=== PATIENT | male | born 1940 | race Caucasian/White ===

== ENCOUNTER 2017-10-12 10:06 | Outpatient (CLI) | payer MEDICARE | END 2017-10-12 10:07 | disposition home or self-care (01) | LOC: CTENTCT 10:06 | PROVIDERS: ATTEND Specialist | DX: J32.9 Chronic sinusitis, unspecified (principal) | CPT/HCPCS: 70486 ==

== ENCOUNTER 2017-10-19 08:00 | Outpatient (CLI) | payer MEDICARE ==
[2017-10-19] MEDS ORDERED: Iopamidol 370 76% 100 ML VIAL ONE (12:16)
== END 2017-10-19 08:01 | disposition home or self-care (01) ==
LOC: BICCT 08:00
PROVIDERS: ATTEND Internal Medicine Gastroenterology
DX: R10.9 Unspecified abdominal pain (principal); R94.5 Abnormal results of liver function studies; K80.20 Calculus of gallbladder without cholecystitis without obstruction; J90 Pleural effusion, not elsewhere classified; I70.90 Unspecified atherosclerosis; R18.8 Other ascites
CPT/HCPCS: 74177

== ENCOUNTER 2018-05-15 04:06 | Inpatient (IN) | payer MEDICARE ==
[2018-05-15] MEDS ORDERED: Pantoprazole 80 MG in Sodium Chloride 0.9% 100 ML IVP SCH (04:45)
[2018-05-15] MEDS ORDERED: Pantoprazole 40 MG VIAL ONE (05:05)
[2018-05-15] MEDS ORDERED: Ondansetron HCl/PF 4 MG/2 ML Vial ONE ×2 (05:05→06:27)
[2018-05-15 05:16] LABS: PTT 27.5 SEC (22.9-36.1); Prothrombin Time 22.3 SEC (12.0-14.7)
[2018-05-15 05:26] LABS: ALT (SGPT) 29 U/L (8-55); AST (SGOT) 47 U/L (5-34); Albumin 3.1 g/dL (3.4-4.8); Alkaline Phosphatase 217 U/L (40-150); Anion Gap 27 mmol/L (10-20); BUN (Urea Nitrogen) 94 mg/dL (8.4-25.7); Bilirubin, Total 4.1 mg/dL (0.2-1.2); CK (CPK) 26 U/L (30-200); Calc. Creatinine Clearance 0 mL/min (70-130); Calcium 8.4 mg/dL (7.8-10.44); Carbon Dioxide 17 mmol/L (23-31); Chloride 98 mmol/L (98-107); Estimated GFR-MDRD 26; Globulin 1.8 g/dL (2.4-3.5); Glucose 81 mg/dL (83-110); Protein, Total 4.9 g/dL (5.8-8.1); Sodium 135 mmol/L (136-145)
[2018-05-15 05:27] LABS: CKMB 3.1 ng/mL (0-6.6); Troponin I 0.024 ng/mL (< 0.028)
[2018-05-15 05:29] LABS: Potassium 6.7 mmol/L (3.5-5.1)
[2018-05-15 05:49] LABS: Bilirubin Negative (Negative); Blood, Urine Negative (Negative); Clarity CLOUDY (Clear); Glucose, Urine (Dipstick) Negative (Negative); Leukocyte Negative (Negative); Nitrite Negative (Negative); Protein, Urine (Dipstick) Negative (Neg-Trace); Specific Gravity, Urine 1.015 (1.002-1.036); Urobilinogen 0.2 mg/dL (0.2-1.0)
[2018-05-15 05:54] LABS: Band 10 % (5-11); Lymphocytes 5 % (21-51); MDiff Complete? YES; Mean Corpuscular HGB CONC 33.9 g/dL (32.0-36.0); Mean Corpuscular Hemoglobin 35.3 pg (27.0-31.0); Mean Platelet Volume 8.6 fL (7.4-10.4); Monocytes 1 % (0-10); Neutrophil 83 % (42-75); PLT Morphology Comment Appears Decreased; Platelet Count 81 thou/uL (130-400); RBC Distribution Width 14.5 % (11.5-14.5); Red Blood Cell (RBC) Count 1.69 mill/uL (4.70-6.10); White Blood Cell (WBC) Count 5.6 thou/uL (4.8-10.8)
[2018-05-15] MEDS ORDERED: Octreotide Acetate 1,250 MCG in Sodium Chloride 0.9% 250 ML 250 ML IVPB SCH (06:00)
[2018-05-15] MEDS ORDERED: Octreotide Acetate 100 MCG/ML VIAL SLOW IVP SCH (06:00)
[2018-05-15] MEDS ORDERED: Sodium Chloride 0.9% 100 ML ONE (06:33)
[2018-05-15] MEDS ORDERED: cefTRIAXone\\ROCEPHIN 1 GM VIAL ONE (06:33)
[2018-05-15] MEDS ORDERED: Midazolam HCl 2 mg/2 ml Vial ONE (06:42)
[2018-05-15] MEDS ORDERED: Fentanyl 100 MCG/2 ML VIAL ONE (06:42)
[2018-05-15] MEDS ORDERED: Phenylephrine HCL 10 MG/ML VIAL ONE (06:58)
--- NOTE | 2018-05-15 07:06 | PDOC.FPRHP ---
- History of Present Illness Chief Complaint: GI Bleed History of Present Illness: This is a critically ill 77 yo w/ PMH including GERD and cirrhosis who comes in from [facility]/ [facility] emesis x2 per family. He was recently discharged from the [facility] on . where he was admitted for QUINN on paracentesis, he had 9L taken off over the course of 2 paracentesis during that stay. The patient is not following commands this morning only groaning, family reports this is not his baseline. ED Course: 2U blood 1 FFP ceftriaxone octreotide drip protonix drip 1 L NS - Allergies/Adverse Reactions Allergies Allergy/AdvReac Type Severity Reaction Status Date / Time No Known Drug Allergies Allergy Verified 05/15/18 04:32 - Home Medications Medication Instructions Recorded Confirmed Type Amlodipine [Norvasc] 10 mg PO DAILY 05/15/18 05/15/18 History Lactulose 10 GM/15ML Oral Lia 15 ml PO BID 05/15/18 05/15/18 History [Lactulose] Pantoprazole [Protonix] 40 mg PO DAILY 05/15/18 05/15/18 History - History PMHx:Cirrhosis (family not sure of the source, thought to be hepatitis), GERD, HTN, Ulcers, deny GI bleed PSHx: paracentesis x2 at the [facility] last week FHx: non-contributory Social: unable to obtain as patient was taken to emergent EGD - Review of Systems ROS unobtainable: due to mental status - Vital signs BP: 68/36 -> 119/55 HR: 99->80 RR: 20 Tmax: 96.9 Pox: 100% on RA Wt: 70kg - Physical Exam -Constitutional: groaning incomprehensibly, pale -HEENT: dry oral mucosa Heart: RRR, normal S1/S2 Lungs: CTAB, no respiratory distress, good air movement -Abdomen: soft, non-tender, mild distension -Neurological: unable to examine completely 2/2 AMS, not withdrawing to pain during my exam -Heme/Lymphatic: scattered bruising FMR H&P: Results - Labs Result Diagrams: 05/15/18 04:35 05/15/18 07:22 Lab results: WBC 5.6 thou/uL (4.8-10.8) 05/15/18 04:35 Hgb 6.0 g/dL (14.0-18.0) L 05/15/18 04:35 Hct 17.6 % (42.0-52.0) L 05/15/18 04:35 MCV 104.0 fL (78.0-98.0) H 05/15/18 04:35 Plt Count 81 thou/uL (130-400) L 05/15/18 04:35 Band Neuts % (Manual) 10 % (5-11) 05/15/18 04:35 Sodium 135 mmol/L (136-145) L 05/15/18 04:35 Potassium 6.7 mmol/L (3.5-5.1) H* 05/15/18 04:35 Chloride 98 mmol/L (98-107) 05/15/18 04:35 Carbon Dioxide 17 mmol/L (23-31) L 05/15/18 04:35 BUN 94 mg/dL (8.4-25.7) H 05/15/18 04:35 Creatinine 2.41 mg/dL (0.6-1.3) H 05/15/18 04:35 Glucose 81 mg/dL (83-110) L 05/15/18 04:35 Calcium 8.4 mg/dL (7.8-10.44) 05/15/18 04:35 Total Bilirubin 4.1 mg/dL (0.2-1.2) H 05/15/18 04:35 AST 47 U/L (5-34) H 05/15/18 04:35 ALT 29 U/L (8-55) 05/15/18 04:35 Alkaline Phosphatase 217 U/L (40-150) H 05/15/18 04:35 Ammonia 69 umol/L (18-72) 05/15/18 05:35 Creatine Kinase 26 U/L (30-200) L 05/15/18 04:35 CK-MB (CK-2) 3.1 ng/mL (0-6.6) 05/15/18 04:35 Serum Total Protein 4.9 g/dL (5.8-8.1) L 05/15/18 04:35 Albumin 3.1 g/dL (3.4-4.8) L 05/15/18 04:35 Urine Ketones Negative mg/dL (Negative) 05/15/18 05:29 Urine Blood Negative (Negative) 05/15/18 05:29 Urine Nitrite Negative (Negative) 05/15/18 05:29 Ur Leukocyte Esterase Negative (Negative) 05/15/18 05:29 FMR H&P: A/P - Problem List (1) GI bleed Current Visit: Yes Status: Acute Code(s): K92.2 - GASTROINTESTINAL HEMORRHAGE, UNSPECIFIED (2) Hypotension Current Visit: Yes Status: Acute (3) Edema Current Visit: Yes Status: Acute Code(s): R60.9 - EDEMA, UNSPECIFIED (4) Anemia Current Visit: Yes Status: Acute Code(s): D64.9 - ANEMIA, UNSPECIFIED (5) Cirrhosis of liver Current Visit: Yes Status: Acute Code(s): K74.60 - UNSPECIFIED CIRRHOSIS OF LIVER - Plan This is a critically ill 77 yo M being admitted for severe GI Bleed and portal vein thrombus. He has a history including cirrhosis, GERD, QUINN, and HTN. Family denies Hx of GI bleed. Consults: GI, Pulm, Nephro [employer] WORK[employer] (AMS) - groaning - does not follow commands - Sedation: none currently, sedation protocol after surgery Resp (Pleural Effusion R) - no respiratory distress - will be intubated during surgery - suspect fluid overload 2/2 CKD w/ Cirrhosis CV (hypotension) - on levophed, supplement as needed - cautious on fluids 2/2 effusion GI (Cirrhosis, GI bleed, portal vein thrombosis, recent paracentesis) - 2U PRBCs, 1 FFP - check H/H q6hrs - Ceftriaxone for SBP prophylaxis - Emergent EGD - Octreotie, Protonix drips - Ammonia 69 Nutrition - NPO Hematologic (anemia) - hgb 6.0, plts 81 /Renal (CKD, fluid overload, hyperkalemia) - fluid overload - Cr last week at med 2.1-> 2.4 today - +3 pitting edema - Hyperkalemia to 6.7 - check potassium q6hr Infection (sbp prophylaxis) - ceftriaxone Endo () Code status: DNR PPx: pepcid, bleeding risk Diet: NPO Dispo: grave prognosis Attending Addendum - Attending Addendum Date/Time: 05/15/18 1000 I personally evaluated the patient and discussed the management with Dr. Crescencio Sanchez. I agree with the History, Examination, Assessment and Plan documented above with any addition or exceptions noted below. Please see H&P dictated on 05/15/18 for full attending details.
[2018-05-15 07:44] LABS: Potassium 6.1 mmol/L (3.5-5.1)
--- NOTE | 2018-05-15 08:02 | RAD ---
RADIOGRAPH CHEST 1 VIEW: Date: 05/15/18 Time: 0420 hours HISTORY: 77-year-old male with chest pain. COMPARISON: 10/05/17. FINDINGS: This is a supine image. The right hemithoracic cavity is totally opacified. The heart, trachea, and m ediastinum are moderately displaced to the left. Defibrillation paddles are in place. The left lung i s relatively clear. IMPRESSION: Huge right pleural effusion. LEXUS [] POS: STEFANIE
--- NOTE | 2018-05-15 08:06 | HP ---
DATE OF ADMISSION: 05/15/2018 For the full history and physical details, please see Dr. Viktor Sanchez's electronic H&P. Portions of e history and physical have been repeated by myself and I am in agreement with the assessment and yenifer n as documented. HISTORY OF PRESENT ILLNESS: In brief, this patient is a 77-year-old male with history of cirrhosis a nd chronic renal disease, which were simultaneously diagnosed in 10/2017, who presents to the emergen cy room after a 1-day onset of vomiting with blood. The patient reports he was overall feeling well when he began having stomach pains and had 1-2 episodes of nonbloody, nonbilious emesis and it then p rogressed to [place] blood. The patient reports this continued throughout the day yesterday and occurr ed approximately a total of 7-8 times. During this time, he reports that his abdominal pain continue d to get worse and that he eventually developed weakness, fatigue, and shortness of breath due to his symptoms. His is also present in the room who reports that the patient has overall been vomiti ng on and off for approximately the last one month, but has never had a GI bleed. Of note, he was ho spitalized at [facility] last week for an unknown reason and at that time was started on lactulose and a lso had an attempted thoracentesis procedure done which was not effective. The also reports the patient had at least 9 liters of ascitic fluid drained off him during that hospitalization. Since t hat time, he has been housed at [facility]. A significant past medical history i ncludes history of cirrhosis that was diagnosed around 10/2017 as well as chronic renal disease is fo llowed by Dr. Mike. The patient overall denies to me any further medical problems at this time. REVIEW OF SYSTEMS: The patient was positive for shortness of breath, weakness, vomiting, hematemesis , dark bowel movements, abdominal pain. He specifically denies any chest pain, palpitations, worseni ng in the leg swelling, numbness, paresthesias. PHYSICAL EXAMINATION: VITAL SIGNS: At the time of my exam, patient's temperature was 95.9 degrees Fahrenheit, pulse 71, bl ood pressure 118/64, respirations 20, oxygen saturation 100% on room air. GENERAL: The patient was alert, oriented x4, in mild distress. The patient was noted to have some l abored breathing, but was appropriate to me in conversation. HEENT: The patient noted to have dried blood around his oral cavity. He also has a blood surroundin g him on the bed that is dried. Anicteric sclerae. Pupils are 3 mm and reactive bilaterally. LUNG: Reveals clear lungs in the left lung field. In the right lung field, there are no auscultated lung sounds. CARDIOVASCULAR: Revealed a regular rate and rhythm with a grade 2/6 systolic murmur auscultated arou nd the precordium. ABDOMEN: Soft, mildly distended. The patient reported moderate to severe tenderness to palpation di ffusely. Fluid wave palpable. EXTREMITIES: The patient had a 1-2+ pitting edema from the ankles to the shins bilaterally. He was mildly cool, but not clammy. NEUROLOGIC: Motor and sensory grossly intact. LABORATORY DATA AND IMAGIN. CBC: WBC 5.6, H&H 6 and 17.6, platelets 81. 2. CMP showed sodium 135, potassium 6.7, chloride 98, bicarbonate 17, BUN 94, creatinine 2.41, gluco se 81. AST and ALT were 47 and 29, alkaline phosphatase 217, total bilirubin 4.1. 3. Ammonia 69. 4. Coags: PT 22.3, PTT 27.5, INR 2.0. 5. CT scan preliminary read shows large volume ascites in the abdominal cavity. No free air noted. 6. Chest x-ray that shows a well aerated left lung and a non-aerated right lung with a likely large pleural effusion though this is my read on the x-ray. Of note, the patient has CT scan in 10/2017, w [facility] showed a cirrhotic appearance of the liver, but otherwise no major abnormalities. ASSESSMENT AND PLAN: A 77-year-old male with history of cirrhosis presenting with about a 20 hour pe riod of vomiting that progressed to a massive hematemesis likely concerning for a variceal upper zia rointestinal bleed. 1. Upper gastrointestinal hemorrhage, likely variceal in nature. Patient will be admitted to the [facility]. GI has been consulted from the ER and is currently evaluating the patient with plans for endoscop y. Due to concern for variceal bleeding, the patient has been started on Protonix drip as well as oc treotide drip and has been loaded with 1 gram Rocephin IV for SBP prophylaxis. During my time in the room, he had at least one other episode of vomiting and vomited approximately 500 mL blood. He has been given 2 units of blood and we will type and cross for 2 additional units. GI has also recommend ed the patient to receive FFP, which has been ordered. Otherwise, we will continue to maintain vital s with fluid boluses as needed and await further management after endoscopic therapy. 2. Acute blood loss anemia. As above, likely variceal in nature and treatment as above. Two units received and two units type and cross for as well. Two units FFP have been ordered as above. 3. Coagulopathy likely secondary to the patient's liver disease. He will receive FFP and other bloo d products as necessary. Though we do not know at this time the reason for his bleeding is likely va riceal in nature versus a possible Mari-Pedroza tear versus peptic ulcer disease, we will correct co agulopathy with blood products as needed to help achieve hemostasis. 4. Anion gap metabolic acidosis. The patient has an anion gap currently of 20. Lactate level has n ot been checked, though his anion gap is likely elevated secondary to hypoperfusion of end-organs. A lso, the patient with known history of cirrhosis, which could be contributing this anion gap metaboli c acidosis. Continue to monitor fluid boluses and blood products and we will recheck labs in a few h ours. 5. Chronic kidney disease stage 4. Patient has a renal lab from October, which did show severe kidn ey disease which the patient states was diagnosed approximately the same time as the cirrhosis. We w ill continue to trend these values and consult Dr. Mike who is in the hospital. Anticipate some worse chase of his renal function due to his hypoperfusion injury from his acute blood loss anemia. No bev r concern for hepatorenal syndrome at this time, as this creatinine does appear to be chronic in natu re. 6. Hyperkalemia. This was seen on the initial labs performed by the ER. I do not see any intervent ions that have been performed for this. We will need to recheck a potassium level and if continues t o be elevated, we will need institution of measures to help bring that down including insulin, beta a gonist therapy. Kayexalate would be contraindicated at this time as we would not be able to be given due to his n.p.o. status and a massive GI bleed. Consult Renal as above. 7. Ascites. reports that approximately greater than 9 liters was drained from [facility] over the last few weeks. Due to the patient's acute GI bleed that would be concern for development of SBP, t he patient may need a diagnostic and therapeutic paracentesis performed by Interventional Radiology o nce he is more stable and that is able to be performed. 8. Large right-sided pleural effusion. Fortunately for this patient, this large pleural effusion is not affecting his oxygenation or ventilation at this time. It does appear that this is at least sub acute in nature as it was noted while he was at [facility]. Once the patient is more stable, he may need Cardiovascular Surgery consult for chest tube placement for drainage as this is large enough volume that we would not be able to effectively treat this with a diagnostic or ther apeutic thoracentesis. 9. Code status. I myself discussed code status with the patient as well as the patient's . The patient was noted to be alert, oriented x4, and aware of the situation surrounding him. He reports that he is a do not resuscitate and his agrees with that statement. A 65 minutes critical care time spent involved in the care and stabilization of this patient.
--- NOTE | 2018-05-15 08:10 | PDOC.EVN ---
Event Note - Event Note Event Note: Scope showed no varices, will stop octreotide Paraesophageal hernia, may be source of nausea but not a good surgical candidtate repeat potassium down to 6.1, will defer to Dr. Mike, consider kayexelate enema
[2018-05-15 08:42] LABS: Actual Bicarbonate (HCO3a) 13.9 mEq/L (22-28); Base Excess (BEa) -11.4 mEq/L (-2.0 to +3.0); CO2 Tension 29.3 mmHg (35.0-45.0); Hematocrit-ABG 13.9 % (42.0-52.0); Hemoglobin (Hb) 9.6 g/dL (14.0-18.0); O2 Tension (PaO2) 167.3 mmHg (> 70.0); pH, Arterial 7.29 (7.35-7.45)
[2018-05-15 08:43] LABS: ALV-art Gradient 220.875 (0-20); Puncture Site RR
--- NOTE | 2018-05-15 08:56 | CT ---
PRELIMINARY REPORT/[facility]/EMERGENTY AFTER-HOURS PROCEDURE CT Chest Without Intravenous Contrast CT Abdomen and Pelvis Without Intravenous Contrast CLINICAL HISTORY: 77 years old, male; Signs and symptoms; Nausea and vomiting; Other: Opacified lung; Patient HX: Abnor mal cxr, opacified lung; M77 presents to ed via ems from [facility] with C/O gi bleed. Ems reports that pt has been vomiting corffee ground emesis 2x. Pmhx gerd, ulcers, and gi problems. Ems reports pt has no previous medical HX of a gi bleed TECHNIQUE: Axial computed tomography images of the chest, abdomen and pelvis without intravenous contrast. COMPARISON: No relevant prior studies available. FINDINGS: CHEST: Lungs: Left apical mosaic attenuation. Mild scattered linear and patchy ground glass opacities in the left lung. Large right pleural effusion with leftward mediastinal shift and near complete atelectasi s of the right lung with minimal aeration in the upper lobe. Pleural space: See above. Heart: Unremarkable. No significant pericardial effusion. ABDOMEN: Liver: Cirrhotic liver morphology. Vague hyperdensity in the main portal vein and possibly within the right and left intrahepatic branches Gallbladder and bile ducts: Cholelithiasis. Otherwise unremarkable. Pancreas: Unremarkable. Spleen: Normal in size. Adrenals: Unremarkable. Kidneys and ureters: Unremarkable. No obstructing stones. No hydronephrosis. Stomach and bowel: Nonspecific dense content in distal small bowel and proximal colon. Thickened appe arance of the colon attributable to under distention. No obstruction. PELVIS: Appendix: No findings to suggest acute appendicitis. Bladder: Decompressed by a Elam catheter. Reproductive: Unremarkable. CHEST, ABDOMEN and PELVIS: Intraperitoneal space: Large amount of ascites. No free air. Bones/joints: Mild compression deformity of the L3 superior endplate appears subacute. Soft tissues: Small fluid containing paraumbilical hernia. Vasculature: See above. Lymph nodes: Unremarkable. No enlarged lymph nodes. Tubes, lines and devices: Catheter terminating in the left external iliac vein. IMPRESSION: 1. Large right pleural effusion with near-complete atelectasis of the right lung and leftward mediast inal shift. Mild ground glass opacities in the left lung likely a combination of atelectasis and infl ammation. 2. Cirrhotic liver morphology. Large amount of ascites. Vague density in the portal vein may represen t thrombus. 3. Nonspecific dense content in the distal small bowel and proximal colon. Thickened appearance of th e colon attributable to under distention. The findings were verbally communicated via telephone conference with Dr. Lozano at 7:23 AM CDT on 05/15/2018. Thank you for allowing us to participate in the care of your patient. Dictated and Authenticated by: Steve Li MD 05/15/2018 7:27 AM Central Time ([place] & [place]) FINAL REPORT CT ABDOMEN AND PELVIS WITHOUT CONTRAST: Date: FINDINGS/IMPRESSION: Large right effusion completely opacifies the right hemithorax with almost complete atelectasis of th e right lung. There is hazy ground-glass opacities in the left lung as described on preliminary repor t. Large volume ascites. Cirrhotic liver morphology. There is evidence of mural thickening of the right colon, although the colon is nondistended and not well evaluated. Cholelithiasis is noted. I am in agreement with the preliminary report issued by M[facility]. POS: STEFANIE
[2018-05-15] MEDS ORDERED: cefTRIAXone\\ROCEPHIN 1 GM VIAL IM SCH ×2 (09:00)
[2018-05-15] MEDS ORDERED: Ondansetron HCl/PF 4 MG/2 ML Vial IVP PRN (09:01)
[2018-05-15] MEDS ORDERED: Ventilator Sedation Protocol 1 EACH FS SCH (09:01)
[2018-05-15] MEDS ORDERED: CCU Electrolyte Replacement 1 EACH IVPB ONE (09:01)
[2018-05-15] MEDS ORDERED: Norepinephrine 8 MG/0.9% NS 250 ML IVPB PRN (09:01)
[2018-05-15] MEDS ORDERED: Magnesium 2 GM/NS 0.9% 100 ML 2 GM in Premix Bag 1 BAG IVPB PRN (09:04)
[2018-05-15] MEDS ORDERED: Potassium Chloride 40 MEQ in Sodium Chloride 0.9% 250 ML 250 ML IVPB PRN (09:04)
[2018-05-15] MEDS ORDERED: Potassium Phosphate 12 MMOL in Sodium Chloride 0.9% 250 ML 250 ML IV PRN (09:04)
[2018-05-15] MEDS ORDERED: Potassium Chloride 20 MEQ TAB PO PRN (09:04)
[2018-05-15] MEDS ORDERED: Potassium Phosphate 9 MMOL in Sodium Chloride 0.9% 100 ML IVPB PRN (09:04)
[2018-05-15] MEDS ORDERED: Potassium Phosphate 15 MMOL in Sodium Chloride 0.9% 250 ML 250 ML IV PRN (09:04)
[2018-05-15] MEDS ORDERED: Potassium Chloride 40 MEQ in Premix Bag 1 BAG IVPB PRN (09:04)
[2018-05-15] MEDS ORDERED: Magnesium Oxide 400 MG TAB PO PRN ×2 (09:04)
[2018-05-15] MEDS ORDERED: Fentanyl BOLUS 250 ML IVPB PRN (09:05)
[2018-05-15] MEDS ORDERED: Lorazepam 2 MG/ML VIAL SLOW IVP PRN (09:05)
[2018-05-15] MEDS ORDERED: fentaNYL Citrate/PF 2,000 MCG in Sodium Chloride 0.9% 60 ML IV SCH (09:05)
[2018-05-15] MEDS ORDERED: Propofol BOLUS 1,000 MG/100 ML VIAL IV PRN (09:05)
[2018-05-15] MEDS ORDERED: Propofol 1,000 MG/100 ML VIAL IV PRN (09:05)
[2018-05-15 09:14] VITALS: BMI 23.3
[2018-05-15] MEDS: Sodium Chloride 0.9% 1,000 ML IV SCH ×2 (10:06→19:43)
--- NOTE | 2018-05-15 10:35 | CON ---
DATE OF CONSULTATION: 05/15/2018 CHIEF COMPLAINT: Vomited blood. HISTORY OF PRESENT ILLNESS: Mr. Jones is a 77-year-old man with a history of decompensated cirrhosis who presented to the emergency room after multiple episodes of coffee-ground emesis and dark red blo frnacisco emesis. He was most recently at the [facility] in April, treated for symptoma tic ascites and hepato hydrothorax. He has previously been treated for SBP. He has undergone parace ntesis multiple times recently. He has also had a thoracentesis for hepato hydrothorax previously. His last endoscopy was in 10/[address] Arias who follows him as an outpatient. This showed grade I esophageal varices. He has had chronic nausea and vomiting and some epigastric abdominal pain over t he last several months at least. When he first started throwing up the fluid was just a clear liquid and then became bloody last night. He is currently oriented, but his gives most of the history . When he came to the emergency room he was hypotensive with blood pressure in the 60s. He received fluid resuscitation and a couple units of blood. His hemoglobin was 6 on presentation. He was star savita on octreotide and pantoprazole. PAST MEDICAL HISTORY: Cryptogenic cirrhosis of the liver, spontaneous bacterial peritonitis, recurre nt ascites and hepato hydrothorax, esophageal varices. He has had encephalopathy with his last hospi talization. He has had chronic nausea and vomiting. He has a history of diabetes mellitus and kidne y stones, hypertension and hyperlipidemia. PAST SURGICAL HISTORY: Foot surgery, colonoscopy, EGD. FAMILY HISTORY: Positive for colon cancer in his brother. SOCIAL HISTORY: He has had occasional alcohol use in the past. No drugs. No smoking. REVIEW OF SYSTEMS: Negative x10 systems reviewed except as stated in history of present illness; how ever, this is limited as the patient is groggy and encephalopathic. PHYSICAL EXAMINATION: GENERAL: He is afebrile. Pulse is in the 70s. His blood pressure is in the 103/50s range. HEENT: Eyes have no scleral icterus. Oropharynx has dry mucous membranes. He has dried coffee grou nd emesis on his face. NECK: He has no cervical or supraclavicular lymphadenopathy. LUNGS: Clear to auscultation bilaterally with decreased breath sounds on the right. HEART: Regular rate and rhythm. ABDOMEN: Distended with ascites, but nontender. His bowel sounds are present. EXTREMITIES: No lower extremity edema. NEUROLOGIC: He has no asterixis and he does follow commands appropriately. LABORATORY AND X-RAY FINDINGS: Sodium 135, potassium was 6.7 in the ER, chloride 98, CO2 17, BUN 94, creatinine 2.41, bilirubin 4.1, AST 47, ALT 29, alkaline phosphatase 217. Ammonia 26, albumin 3.1. INR 2.0. White blood cell count 5.6, hemoglobin 6.0, platelets 81. IMPRESSION: 1. Acute upper gastrointestinal bleed with anemia of acute blood loss. He most likely has a varicea l bleed given his history of cirrhosis and the large volume of bleeding; however, he could have a Mal olu-Pedroza tear as he did have initially clear vomit followed by bloody emesis. Peptic ulcer is also possible. He has been on pantoprazole as an outpatient. 2. Decompensated cirrhosis. This has been evaluated by Dr. Arias in the past and has been cryptogeni c. He has declined liver transplant evaluation previously. He has been DNR with past hospitalizatio ns. 3. Ascites and hepato hydrothorax. He is on Lasix 40 mg daily and spironolactone 50 mg daily. He h as chronic renal insufficiency that has complicated this. He has been receiving repeated paracentesi s. He is now at risk for SBP given the history of SBP and now acute GI bleed. He is being treated w ith ceftriaxone. 4. Mild encephalopathy. He is oriented x3 now and follows commands and his ammonia is normal. This may be also a function of the hypotension and acute bleed. He does answer questions appropriately, is just a little bit slow. RECOMMENDATIONS: 1. Volume resuscitation and transfusion. 2. Octreotide. 3. Pantoprazole drip. 4. Antibiotics for SBP prophylaxis. 5. EGD. 6. He is noted to have elevated potassium and this is being rechecked to evaluate if this was a hemo lyzed specimen and will be treated appropriately. He will need to stop the spironolactone given the hyperkalemia.
--- NOTE | 2018-05-15 10:45 | OP ---
DATE OF PROCEDURE: 05/15/2018 PROCEDURE: Esophagogastroduodenoscopy with biopsy. PREOPERATIVE DIAGNOSES: Acute gastrointestinal bleed, anemia of acute blood loss, cirrhosis and port al hypertension. PROCEDURE IN DETAIL: Informed consent was obtained. The patient was sedated with general anesthesia . The bite block was placed and the endoscope was advanced easily to the second portion of the duode num and retroflexion was performed in the stomach. There was severe circumferential ulceration of th e distal one third of the esophagus. No focal vessel was seen. No active bleeding at the time. The re was old black blood in the stomach which was suctioned out. The stomach was able to be cleared. There was a possible paraesophageal hiatal hernia noted in retroflexed views. However, this did not distend well. The antrum and pylorus were unremarkable. Biopsies were obtained to rule out H. pylor i. The first portion of the duodenum had a 1 cm cratered ulcer. A couple other smaller duodenal ero sions were present as well. Again, there was no visible vessel or active bleeding at the time of the procedure. Second portion of the duodenum was normal. IMPRESSION: 1. Severe grade D circumferential erosive esophagitis of the distal one third of the esophagus. 2. 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 This certainly could potentially contribute to his chroni c vomiting and esophagitis. He is definitely not a candidate for any type of surgical treatment for that. 3. A 1-cm cratered ulcer in the duodenal bulb. 4. Biopsies were taken from the stomach to rule out H. pylori. Biopsies were taken from the esophag eal ulceration to rule out viral esophagitis. There were no obvious varices; however, the distal eso phagus was obscured with the severe esophagitis. No gastric varices were visualized; however, again the fundus was poorly distensible and again he appeared to have some degree of hiatal hernia paraesop hageal hiatal hernia. RECOMMENDATIONS: 1. Proton pump inhibitor drip. 2. Stop octreotide. 3. Continue ceftriaxone.
--- NOTE | 2018-05-15 10:50 | PDOC.EVN ---
Event Note - Event Note Event Note: Discussed grave prognosis with family. Discussed likelihood of fluid in R lung and abdomen re-occurring if drained. Patient was DNR/DNI, suspended for procedure. Family states they would like to pursue comfort care once sedation is resolved. Sedation infiltrated vein in OR so this may take a few hours. Palliative care consulted. Anticipate extubation and shift to comfort care this PM. Will re-visit with family this PM.
[2018-05-15] MEDS: Albumin 25% 25 GM/100 ML BOT IVPB SCH ×2 (12:11→18:08)
[2018-05-15 12:46] LABS: Potassium 6.2 mmol/L (3.5-5.1)
--- NOTE | 2018-05-15 12:56 | CON ---
DATE OF CONSULTATION: 05/15/2018 REASON FOR CONSULTATION: Acute respiratory failure. HISTORY OF PRESENT ILLNESS: The patient is a 77-year-old male with end-stage liver disease who presented today with hematemesis that is probably secondary to a duodenal ulcer and gastritis. He was in [facility] about 2 weeks ago with a right hepatic hydrothorax and significant ascites. He has had a total of about 20 liters of fluid tapped off of his abdomen and about 1.5 liters tapped off from his chest. He was in the [facility] in between, but did not do well over there. I was able to speak with the patient' s and daughter regarding his care. I have also reviewed documentation in the chart. The patient was taken for EGD, he was left intubated afterwards. Apparently, he may have gotten some intramuscular paralytic because of infiltrated IV. PAST MEDICAL HISTORY: 1. Cryptogenic cirrhosis 2. Gastroesophageal reflux. 3. Hypertension. 4. Ulcers. PAST SURGICAL HISTORY: Paracentesis and thoracentesis. SOCIAL HISTORY: Nonsmoker, does not consume alcohol. MEDICATIONS PRIOR TO ADMISSION: Protonix, lactulose and Norvasc. REVIEW OF SYSTEMS: Cannot be obtained as the patient is on mechanical ventilation. PHYSICAL EXAMINATION: VITAL SIGNS: Blood pressure running systolic 60s to 90s, heart rate in the 80s , temperature 96.9, O2 sat 100%. GENERAL: The patient is able to nod on mechanical ventilation. HEENT: Remarkable for 2 mm pupils that are reactive, slightly icteric sclerae. Oropharynx clear except for endotracheal tube. NECK: No adenopathy or JVD. LUNGS: Diminished breath sounds of the right globally. Left side clear. CARDIOVASCULAR: S1, S2, slightly tachycardic. ABDOMEN: Distended with prominent ascites. EXTREMITIES: No clubbing, cyanosis, or edema. He has severe muscle wasting. LABORATORY AND X-RAY FINDINGS: White blood cell count 5.6, hematocrit 17.6, platelet count 81. INR 2.0, pH 7.29, pCO2 of 29, pO2 167 on SIMV rate 10, tidal volume 500, PEEP 5, pressure support 10, FiO2 60%. Sodium 135, potassium 6.7, chloride 98, CO2 17, BUN 98, creatinine 2.4, glucose 81. Ammonia level 69. His chest x-ray shows a prominent right hepatic hydrothorax. He also has significant ascites seen on his CT of the abdomen. ASSESSMENT: This is a 77-year-old male with end-stage liver disease from cryptogenic cirrhosis. He has recurrent ascites and hepatic hydrothorax, which have not responded to therapy. On top of all this, he has developed a significant gastrointestinal bleed and is severely anemic. He has profound hyperkalemia and underlying renal insufficiency. PLAN: I spoke with the patient's family in conference. I told them that I do not think that Mr. Jones was going to get better with aggressive therapy. My concern with performing paracentesis and thoracentesis is the fluid will come back almost immediately. I have suggested that we get palliative care involved. I have asked them to get other family members up to the hospital to see the patient. The patient is DNR. We are expecting extubation later today or early tomorrow with comfort measures. 60 minutes CC time, including family meeting MTDCleo
[2018-05-15] MEDS ORDERED: Glycopyrrolate 0.2 MG/ML 5 ML SYRINGE ONE (13:09)
[2018-05-15] MEDS ORDERED: PHENYLEPHRINE-NS 100 MCG/ML 10 ML SYRINGE ONE (13:09)
[2018-05-15] MEDS ORDERED: ePHEDrine/0.9% NaCl/PF SYRINGE 50 mg/10 ml ONE (13:09)
[2018-05-15 16:02] VITALS: BP 123/50
[2018-05-15] MEDS ORDERED: Morphine 4 MG/ML VIAL SLOW IVP PRN (16:18)
[2018-05-15] MEDS ORDERED: Furosemide 40 MG/4 ML VIAL SLOW IVP SCH (18:00)
[2018-05-15 18:12] LABS: Potassium 6.2 mmol/L (3.5-5.1)
[2018-05-16] MEDS: Pantoprazole 80 MG, Admixture Fee 1 EACH in Sodium Chloride 0.9% 100 ML IVP SCH ×2 (01:54→11:33)
[2018-05-16] MEDS: Sodium Chloride 0.9% 1,000 ML IV SCH ×2 (05:16→16:18)
[2018-05-16 05:23] LABS: #Monocytes 0.8 thou/uL (0.11-0.59); #Neutrophils 10.3 thou/uL (1.40-6.50); %Eosinophils 0.1 % (0.0-10.0); %Lymphocytes 8.5 % (21.0-51.0); %Monocytes 6.9 % (0.0-10.0); %Neutrophils 84.5 % (42.0-75.0); Hemoglobin 6.4 g/dL (14.0-18.0); Mean Corpuscular HGB CONC 34.8 g/dL (32.0-36.0); Mean Corpuscular Volume 97.7 fL (78.0-98.0); Mean Platelet Volume 7.5 fL (7.4-10.4); Platelet Count 170 thou/uL (130-400); RBC Distribution Width 14.6 % (11.5-14.5); Red Blood Cell (RBC) Count 1.88 mill/uL (4.70-6.10); White Blood Cell (WBC) Count 12.2 thou/uL (4.8-10.8)
[2018-05-16] MEDS ORDERED: cefTRIAXone\\ROCEPHIN 1 GM VIAL ONE (05:24)
[2018-05-16 05:35] LABS: Anion Gap 18 mmol/L (10-20); BUN (Urea Nitrogen) 109 mg/dL (8.4-25.7); Calc. Creatinine Clearance 23 mL/min (70-130); Calcium 8.3 mg/dL (7.8-10.44); Carbon Dioxide 21 mmol/L (23-31); Chloride 103 mmol/L (98-107); Estimated GFR-MDRD 22; Glucose 94 mg/dL (83-110); Potassium 5.8 mmol/L (3.5-5.1); Sodium 136 mmol/L (136-145)
[2018-05-16] MEDS ORDERED: cefTRIAXone\\ROCEPHIN 1 GM in Sodium Chloride 0.9% 100 ML IVPB SCH (06:00)
[2018-05-16] MEDS: Albumin 25% 25 GM/100 ML BOT IVPB SCH ×3 (06:00→11:33)
--- NOTE | 2018-05-16 06:29 | PDOC.FM ---
- Subjective Subjective: This morning the patient denies pain or shortness of breath. He was able to spend time with his and daughters last night. No vomiting episodes overnight. Patient states he understands his grave prognosis and he does not want to attempt fluid drainage again with the understanding that there is a good chance it would return. Patient would prefer to go home, he does not like his driving into town with a broken foot and does not making his daughters miss work b/c "they have high-powered jobs." If this is not possible he would consider an inpatient hospice facility. - Objective Vital Signs & Weight: Vital Signs (12 hours) Temp Pulse Resp Pulse Ox 05/16/18 04:00 98.1 F 05/16/18 00:20 100 05/16/18 00:00 98.2 F 05/15/18 20:00 98.2 F 86 14 100 Weight Weight 71.9 kg Most Recent Monitor Data Heart Rate from ECG 81 NIBP 107/38 NIBP BP-Mean 50 Respiration from ECG 17 SpO2 98 I&O: 05/14/18 05/15/18 05/16/18 06:59 06:59 06:59 Intake Total 1069.8 Output Total 188 Balance 881.8 Result Diagrams: 05/16/18 05:09 05/16/18 05:09 <Viktor Sanchez - Last Filed: 05/16/18 06:27> - Objective Vital Signs & Weight: Vital Signs (12 hours) Temp Pulse Resp Pulse Ox 05/16/18 08:00 97.8 F 74 14 05/16/18 07:05 97 05/16/18 07:00 97.8 F 05/16/18 04:00 98.1 F 05/16/18 00:20 100 05/16/18 00:00 98.2 F Weight Weight 77.1 kg Most Recent Monitor Data Heart Rate from ECG 75 NIBP 125/45 NIBP BP-Mean 81 Respiration from ECG 13 SpO2 97 I&O: 05/15/18 05/16/18 05/17/18 06:59 06:59 06:59 Intake Total 2500.8 Output Total 738 275 Balance 1762.8 -275 Result Diagrams: 05/16/18 05:09 05/16/18 05:09 <Juan Mcduffie - Last Filed: 08/09/18 10:20> Phys Exam - Physical Examination Constitutional: NAD HEENT: PERRLA decreased breath sounds on R, slight crackles difficult to appreciate because of poor air movement. CTA on the L Cardiovascular: RRR 2/6 systolic murmur distended with fluid wave Musculoskeletal: pulses present Neurological: non-focal, moves all 4 limbs Psychiatric: A&O x 3 Skin: cap refill <2 seconds <Viktor Sanchez - Last Filed: 05/16/18 06:27> Dx/Plan (1) GI bleed Code(s): K92.2 - GASTROINTESTINAL HEMORRHAGE, UNSPECIFIED Status: Acute (2) Hypotension Status: Acute (3) Edema Code(s): R60.9 - EDEMA, UNSPECIFIED Status: Acute (4) Anemia Code(s): D64.9 - ANEMIA, UNSPECIFIED Status: Acute (5) Cirrhosis of liver Code(s): K74.60 - UNSPECIFIED CIRRHOSIS OF LIVER Status: Acute - Plan Plan: This is a critically ill 77 yo M being admitted for severe GI Bleed and portal vein thrombus. Anticipate transfer to home/inpatient hospice. Goals of care: comfort care He has a history including cirrhosis, GERD, QUINN, and HTN. Family denies Hx of GI bleed. Consults: GI, Pulm, Nephro, Palliative COUNSELING SPECIALIST (AMS-resolved) - A&Ox3 Resp (Pleural Effusion R, hepatic hydrothorax) - no respiratory distress CV (stable BP overnight) -off pressors GI (Cirrhosis, GI bleed, portal vein thrombosis, recent paracentesis) - 2U PRBCs, 1 FFP - Ceftriaxone for SBP prophylaxis - hgb 6.4 Nutrition - ice chips, aspiration risk - ST consulted Hematologic (anemia) - hgb 6.4 plts 170 /Renal (CKD, fluid overload, hyperkalemia) - fluid overload - Cr last week at med 2.1-> 2.4-> 2.81 - +3 pitting edema - Hyperkalemia to 5.8 Infection (sbp prophylaxis) - ceftriaxone Endo () Code status: DNR/DNI PPx: pepcid, bleeding risk Diet: NPO Dispo: grave prognosis <Viktor Sanchez - Last Filed: 05/16/18 06:27> (1) GI bleed Code(s): K92.2 - GASTROINTESTINAL HEMORRHAGE, UNSPECIFIED Status: Acute (2) Hypotension Status: Acute (3) Edema Code(s): R60.9 - EDEMA, UNSPECIFIED Status: Acute (4) Anemia Code(s): D64.9 - ANEMIA, UNSPECIFIED Status: Acute (5) Cirrhosis of liver Code(s): K74.60 - UNSPECIFIED CIRRHOSIS OF LIVER Status: Acute <Juan Mcduffie R - Last Filed: 05/16/18 10:20> Attending Addendum - Attending Addendum Date/Time: 05/16/18 1017 I personally evaluated the patient and discussed the management with Dr. Sanchez. I agree with the History, Examination, Assessment and Plan documented above with any addition or exceptions noted below. Patient currently with stable vitals. He and family are overall on board with instituting comfort measures and hospice care. Patient agrees that he wishes to not pursue aggressive therapy, but seems to be in the denial/anger stage of grieving. Will have palliative care come by and meet with patient and family again. ST worked with patient and reports he is aspiration risk with nutrition, but family will consider comfort feeds. Will start carafate therapy to help with his abdominal pain. Awaiting further recs from CC and GI, but overall it seems everyone is in agreement to withold aggressive therapy. Blood counts stable this morning. His BUN is highly elevated suggesting continued blood in the lower GI tract. <Juan Mcduffie R - Last Filed: 05/16/18 10:20>
--- NOTE | 2018-05-16 08:27 | PRG ---
DATE OF SERVICE: 05/16/2018 The patient was successfully extubated yesterday and has remained comfortable on nasal cannula. Afte r a great deal of discussion with the family, I believe they are leaning towards hospice care and so far we have limited any other procedures. PHYSICAL EXAMINATION: VITAL SIGNS: Temperature 98.1, pulse 82, blood pressure 125/44. His O2 sat is 95% on 2 liters. Int bryn yesterday 2500, output 738. HEENT: He has icteric sclerae. Oropharynx dry. NECK: No JVD. CHEST: Numerous bruising spots over his chest. LUNGS: Absent breath sounds on the right, clear on the left. CARDIAC: S1 and S2 regular. ABDOMEN: Profoundly distended from ascites. EXTREMITIES: Severe muscle wasting. LABORATORY DATA: Sodium 136, potassium 5.8, chloride 103, CO2 21, BUN 109, creatinine 2.8, glucose 9 4. White blood cell count 12.2, hemoglobin 6.4, hematocrit 18.4, platelet count 170. ASSESSMENT: Mr. Jones has end-stage liver disease manifested by severe ascites, gastrointestinal ble eding and a right hepatic hydrothorax. In my opinion, his chances of a meaningful recovery are disma l. RECOMMENDATIONS: Hospice care is recommended. I would stop checking labs and not transfuse the lai ent. Respiratory symptoms should be controlled with anxiety and pain medications. I would avoid any further procedures on the patient. He is okay to go home on hospice today.
--- NOTE | 2018-05-16 13:04 | PRG ---
DATE OF SERVICE: 05/16/2018 SUBJECTIVE: Mr. Jones has been extubated. He is awake and states that he feels better in general. PHYSICAL EXAMINATION: GENERAL: He is in no acute distress. LUNGS: Clear on the left. ABDOMEN: Distended with ascites. Soft and nontender. EXTREMITIES: No lower extremity edema. LABORATORY DATA: Hemoglobin is 6.4, INR 2.0, creatinine 2.81. IMPRESSION: 1. Gastrointestinal bleed secondary to severe erosive esophagitis and duodenal ulcer. 2. Anemia of chronic blood loss. 3. Decompensated cirrhosis. 4. Ascites with hepatic hydrothorax. 5. Chronic renal insufficiency. RECOMMENDATIONS: Primary services discussed prognosis with the family and given the severe hepatic h ydrothorax and refractory ascites, renal failure and bleeding, family has decided to pursue hospice c are. He is anticipated to be discharged home or to inpatient hospice today.
[2018-05-16 15:10] VITALS: TEMP 97
--- NOTE | 2018-05-16 17:00 | PQF ---
AILEEN BLACKWELL KIMMIE jeff [id number] CLINICAL DOCUMENTATION IMPROVEMENT CLARIFICATION FORM: ICD-10 Updated PLEASE DO AN ADDENDUM TO THE PROGRESS NOTE WITH ANY DOCUMENTATION UPDATES OR ADDITIONS AND CARRY THROUGH TO DC SUMMARY. THANK YOU. DATE: 05-16-18 ATTN: DR. KIMMIE MONTGOMERY / DR. KATHLEEN Ortiz Please exercise your independent, professional judgment in responding to the clarification form. Clinical indicators are provided on the bottom of this form for your review Please check appropriate box(s): [ x ] Acute Renal Failure (ARF) / Acute Kidney Injury (QUINN) [ ] Acute on Chronic Renal Failure Stage of CKD 4 [ ] CKD without ARF/QUINN please Stage of CKD 4 [ ] Other diagnosis [ ] Unable to determine Acute Renal Failure/Acute Kidney Failure defined as: Increases in SCr by (>) 0.3 mg/dl within 48 hours OR- Increases in SCr by (>) 1.5 times baseline, known or presumed to have occurred within the prior 7 days OR- Urine volume < 0.5 ml/kg/hour for 6 hours (KDIGO supplement 2012 for RIFLE/NICOLLE criteria) For continuity of documentation, please document condition throughout progress notes and discharge summary. Thank You. CLINICAL INDICATORS - SIGNS / SYMPTOMS / LABS LABS: BUN CREAT GFR -8 94 2.41 26 8-9 109 2.81 22 ED: UPPER GI BLEED; HYPOTENSION BP 68/36; 69/39; 91/47; 95/52; 90/50; 91/46; 81/46; 90/47 RISK FACTORS ED: UPPER GI BLEED 8-8 H&P (Diana): CIRRHOSIS AND CHRONIC RENAL DX ACUTE BLD LOSS ANEMIA; ANTICIPATE SOME WORSENING OF HIS RENAL FUNCTION D/T HIS HYPOPERFUSION INJURY FROM ABLA. TREATMENTS: ED: 2U BLD; 1 FFP; CEFTRIAXONE; OCTREOTIDE DRIP; PROTONIX DRIP; 1LNS MAR: NS 05-15 ALBUMIN 05-15 THANK YOU, MARYBETH (This form is maintained as a part of the permanent medical record) [address] [employer]. All Rights Reserved Marybeth Cruz RN, [email or web address] Cell [facility]
--- NOTE | 2018-05-16 17:09 | PQF ---
AILEEN BLACKWELL KIMMIE BRANCH [id number] CLINICAL DOCUMENTATION IMPROVEMENT CLARIFICATION FORM: ICD-10 Updated PLEASE DO AN ADDENDUM TO THE PROGRESS NOTE WITH ANY DOCUMENTATION UPDATES OR ADDITIONS AND CARRY THROUGH TO DC SUMMARY. THANK YOU. DATE: 05-16-18 ATTN: DR. MONTGOMERY / DR. Ortiz Please exercise your independent, professional judgment in responding to the clarification form. Clinical indicators are provided on the bottom of this form for your review Please check appropriate box(s): [ x ] Hypovolemic Shock [ ] Shock Unspecified [ ] Other diagnosis [ ] Unable to determine For continuity of documentation, please document condition throughout progress notes and discharge summary. Thank You. CLINICAL INDICATORS - SIGNS / SYMPTOMS / LABS ED: UPPER GI BLEED; HYPOTENSION - VOMITING COFFEE GROUND EMESIS BP 68/36; 69/39; 91/47; 95/52; 90/50; 91/46; 81/46; 90/47 P 80-102 CORE TEMP 96.9; 95.7 H&P: ROS UNOBTAINABLE D/T MENTAL STATUS HYPOTENSION; ANEMIA; CIRRHOSIS OF LIVER 1-2+ PITTING EDEMA FROM ANKLES TO SHINS RISK FACTORS 8-8 (Diana) H&P: ACUTE BLD LOSS ANEMIA UPPER GI BLEED W/ HX OF CIRRHOSIS - 20 HOUR PERIOD OF VOMITING TREATMENTS: ED: WARM BLANKETS APPLIED/ WARM FLUIDS GIVEN; OCTAVIO HUGGER; ED TX: 2U BLD; 1 FFP; CEFTRIAXON; OCTREOTIDE DRIP; PROTONIX DRIP; 1LNS CPOE: ICU MAR: ROCZULEIMAHIDeepa 8-9 THANK YOU, MARYBETH (This form is maintained as a part of the permanent medical record) 2014 [email or web address]. All Rights Reserved Marybeth Cruz RN, [email or web address] [facility]
--- NOTE | 2018-05-17 06:37 | DIS-2 ---
DATE OF ADMISSION: 05/15/2018 DATE OF DISCHARGE: 05/16/2018 RESIDENT: Dr. Viktor Sanchez ADMITTING ATTENDING: Juan Mcduffie MD DISCHARGE ATTENDING: Juan Mcduffie MD CONSULTATIONS: Pulmonology, Gastroenterology. PROCEDURES: 1. Chest x-ray showing hepatic hydrothorax on the right side. 2. CT abdomen and pelvis showing large volume ascites, cirrhosis, cholelithiasis. PRIMARY DIAGNOSES: End-stage liver disease. SECONDARY DIAGNOSES: Hepatic hydrothorax, acute kidney injury, GI bleed, hypotension, edema, anemia, hypovolemic shock. DISCHARGE MEDICATIONS: Lactulose 15 grams b.i.d. DISCONTINUED MEDICATIONS: Amlodipine, pantoprazole. HISTORY OF PRESENT ILLNESS AND HOSPITAL COURSE: This is a 77-year-old gentleman who came into the ER after an episode of GI bleed. He had a second episode of bloody vomiting while in the ER. He was e valuated by Dr. Mick Chahal and taken for emergent EGD. Ulcers were found in the duodenum as well as the esophagus. The patient was transferred up to the ICU. Upon evaluation in the ICU, it was det ermined that his cirrhosis had led to hepatic hydrothorax and complete white out of the right lung fi eld. The patient was DNR/DNI upon admission. After discussion with the family, it was decided that pursuing further care would not meet the goals of care of the patient. Draining the fluid would not be helpful as this would deplete him of protein and also likely lead to recurrence. Combined decisio n was made between the patient and the family to pursue hospice care. The patient was ultimately tra nsferred home for home hospice care with [facility]. DISPOSITION: Stable, grave outlook. DISCHARGE INSTRUCTIONS: 1. Location: Home. 2. Diet: GI soft, patient was noted to be aspirating by ST. 3. Activity: As tolerated. 4. Followup: Follow up with [facility].
== END 2018-05-16 16:45 | disposition home or self-care (01) | DRG 441 ==
LOC: ERS 04:06 → CCU 06:09
PROVIDERS: ADMIT Student in an Organized Health Care Education/Training Program; ATTEND Student in an Organized Health Care Education/Training Program
PROC: 0DB58ZX Excision of Esophagus, Via Natural or Artificial Opening Endoscopic, Diagnostic (ICD-10-PCS; principal; 2018-05-15)
PROC: 30233N1 Transfusion of Nonautologous Red Blood Cells into Peripheral Vein, Percutaneous Approach (ICD-10-PCS; 2018-05-15)
PROC: 0DB68ZX Excision of Stomach, Via Natural or Artificial Opening Endoscopic, Diagnostic (ICD-10-PCS; 2018-05-15)
DX: K72.90 Hepatic failure, unspecified without coma (principal); K26.4 Chronic or unspecified duodenal ulcer with hemorrhage; K22.11 Ulcer of esophagus with bleeding; G93.40 Encephalopathy, unspecified; R57.1 Hypovolemic shock; K92.0 Hematemesis; D68.4 Acquired coagulation factor deficiency; D62 Acute posthemorrhagic anemia; E87.2 Acidosis; N18.4 Chronic kidney disease, stage 4 (severe); R18.8 Other ascites; J90 Pleural effusion, not elsewhere classified; N17.9 Acute kidney failure, unspecified; E87.5 Hyperkalemia; Z66 Do not resuscitate; K44.9 Diaphragmatic hernia without obstruction or gangrene; K80.20 Calculus of gallbladder without cholecystitis without obstruction; K21.9 Gastro-esophageal reflux disease without esophagitis; I12.9 Hypertensive chronic kidney disease with stage 1 through stage 4 chronic kidney disease, or unspecified chronic kidney disease; K74.69 Other cirrhosis of liver
CPT/HCPCS: 36415; 36430; 36556; 51702; 71045; 71250; 74177; 80048; 80053; 81003; 82140; 82550; 82553; 82805; 84484; 85025; 85610; 85730; 86850; 86900; 86901; 88305; 88312; 88313; 88341; 88342; 93005; 94002; 94760; 96361; 96365; 96368; 96375; 96376; C9113; G8996-GN-CM; G8997-GN-CK; J0696; J1940; J2250; J2270; J2354; J2370; J2405; J3010; J7050; P9016; P9047

== ENCOUNTER 2018-07-08 13:33 | Emergency (ER) | payer MEDICARE ==
--- NOTE | 2018-07-08 15:33 | CT ---
CT HEAD NONCONTRAST: History: Fall. Head injury. Comparison: 06-11-18 FINDINGS: There is no evidence of acute intracranial hemorrhage or infarct. Diffuse cortical atrophy and chroni c ischemic small vessel disease are again demonstrated. Arachnoid cyst at the posterior fossa is stab le. No mass effect or shift of midline structures. Partial opacification right mastoid air cells is s table. Calcification within the arterial structures at the brain base. IMPRESSION: Chronic type findings are stable. No acute intracranial abnormalities are demonstrated. POS: STEFANIE
[2018-07-08] MEDS ORDERED: Lidocaine 1% w/Epinephrine 1:100K 20 ML VIAL ONE (16:06)
[2018-07-08] MEDS ORDERED: Fentanyl 100 MCG/2 ML VIAL ONE (16:21)
== END 2018-07-08 18:45 | disposition home or self-care (01) ==
LOC: ERS 13:33
DX: S51.012A Laceration without foreign body of left elbow, initial encounter (principal); S20.211A Contusion of right front wall of thorax, initial encounter; S40.022A Contusion of left upper arm, initial encounter; S40.021A Contusion of right upper arm, initial encounter; I10 Essential (primary) hypertension; K72.90 Hepatic failure, unspecified without coma; Z79.899 Other long term (current) drug therapy; D50.0 Iron deficiency anemia secondary to blood loss (chronic); W19.XXXA Unspecified fall, initial encounter
CPT/HCPCS: 70450; J2001; J3010